=== PATIENT | male | born 1940 | race African-American/Black ===

== ENCOUNTER 2017-11-15 20:09 | Inpatient (IN) | payer MEDICARE ==
[~2017-11-15] VITALS: Ht 160 cm; Wt 63.0 kg
[2017-11-15 21:25] LABS: BASOPHILS % 0.1 % (0.0-2.0); EOSINOPHILS % 0.1 % (0.0-5.0); HEMATOCRIT. 43.3 % (42.0-52.0); HEMOGLOBIN. 15.1 g/dL (14.0-18.0); LYMPHOCYTES % 7.6 % (20.0-50.0); MEAN CORPUSCULAR HEMOGLOBIN 32.2 pg (28.0-32.0); MEAN CORPUSCULAR VOLUME 92.4 fL (80.0-94.0); MEAN PLATELET VOLUME 8.2 fl (7.4-10.4); MONOCYTES % 7.1 % (2.0-8.0); NEUTROPHILS % 85.1 % (40.0-76.0); PLATELET 179 x1000/uL (130-400); RED BLOOD CELL COUNT 4.68 mill/uL (4.7-6.1)
[2017-11-15 21:29] LABS: PROTHROMBIN TIME 10.3 sec (9.1-11.1)
[2017-11-15 21:30] LABS: CHLORIDE 104 mEq/L (98-107)
[2017-11-15 21:38] LABS: CLARITY URINE CLEAR (CLEAR); COLOR URINE YELLOW (YELLOW); KETONES URINE NEGATIVE (NEGATIVE); LEUKOCYTE ESTERASE URINE NEGATIVE (NEGATIVE); NITRITE URINE NEGATIVE (NEGATIVE); OCCULT BLOOD URINE NEGATIVE (NEGATIVE); PROTEIN URINE TRACE (NEGATIVE); SPECIFIC GRAVITY URINE 1.017 (1.005-1.030); UROBILINOGEN URINE 0.2 E.U./dL (0.2-1.0)
[2017-11-15] MEDS ORDERED: PIPERACILLIN/TAZ 3.375G PREMIX 50 ML IV ONE (22:00)
[2017-11-15] MEDS ORDERED: SODIUM CHLORIDE 0.9% 1000ML BAG (SEPSIS BOLUS) IV ONE (22:00)
[2017-11-15] MEDS ORDERED: VANCOMYCIN 1 G PREMIX 200 ML IV ONE (22:00)
[2017-11-16 08:00] VITALS: BP 172/73
[2017-11-16 09:52] VITALS: BP 172/73
[2017-11-16] MEDS ORDERED: NA PHOS,M-B/NA PHOS,DI-BA ENEMA 118ML PR PRN (11:15)
[2017-11-16] MEDS ORDERED: DEXTROSE 50% WATER 50ML SYRINGE IV PRN (11:15)
[2017-11-16] MEDS ORDERED: ACETAMINOPHEN 650MG SUPP PR PRN (11:15)
[2017-11-16] MEDS ORDERED: MAGNESIUM/ALUMINUM HYDROXIDE/SIMETHICONE 30ML UDC PO PRN (11:15)
[2017-11-16] MEDS ORDERED: HYDRALAZINE 20MG/ML VIAL IV PRN (11:15)
[2017-11-16] MEDS ORDERED: ACETAMINOPHEN 325MG TABLET PO PRN (11:15)
[2017-11-16] MEDS ORDERED: DEXT 5%/0.9% NACL 1,000 ML IV SCH (11:15)
[2017-11-16] MEDS ORDERED: IPRATROPIUM/ALBUTEROL 0.5-3(2.5)MG/3ML NEB INH PRN (11:15)
[2017-11-16] MEDS ORDERED: ONDANSETRON HCL 4MG/2ML INJ IV PRN (11:15)
[2017-11-16] MEDS ORDERED: DIPHENHYDRAMINE 50MG/ML VIAL IV PRN (11:15)
[2017-11-16] MEDS ORDERED: HYDRALAZINE 10 MG in SODIUM CHLORIDE 0.9% 49.5 ML IV PRN (11:30)
[2017-11-16 12:00] VITALS: BP 158/78
[2017-11-16] MEDS ORDERED: ENOXAPARIN 40MG/0.4ML SYR SUBCUT SCH (12:00)
[2017-11-16] MEDS: BLOOD SUGAR DIAGNOSTIC STRIP TEST SCH ×3 (12:25→20:02)
[2017-11-16 12:58] LABS: *AMPHETAMINES SCREEN URINE NEGATIVE (NEGATIVE); *BARBITURATES SCREEN URINE NEGATIVE (NEGATIVE); *BENZODIAZEPINES SCREEN URINE NEGATIVE (NEGATIVE); *COCAINE SCREEN URINE NEGATIVE (NEGATIVE)
[2017-11-16 12:59] LABS: CANNABINOID URINE SCREEN NEGATIVE (NEGATIVE); METHADONE URINE SCREEN NEGATIVE (NEGATIVE); OPIATES URINE SCREEN NEGATIVE (NEGATIVE); PHENCYCLIDINE URINE SCREEN NEGATIVE (NEGATIVE)
[2017-11-16 16:00] VITALS: BP 155/86
[2017-11-16 16:25] LABS: HEMATOCRIT 40.7 % (42.0-52.0); MEAN CORPUSCULAR VOLUME 92.7 fL (80.0-94.0); PLATELET 175 x1000/uL (130-400); RED BLOOD CELL COUNT 4.39 mill/uL (4.7-6.1); RED CELL DISTRIBUTION WIDTH 13.4 % (11.6-14.6)
[2017-11-16 16:43] LABS: CHLORIDE 105 mEq/L (98-107)
[2017-11-16 16:51] LABS: AMMONIA 34 uMol/L (<32)
[2017-11-16 16:53] LABS: CREATINE KINASE 138 IU/L (39-308)
[2017-11-16 17:17] LABS: VITAMIN B12 SERUM 493 pg/mL (211-911)
[2017-11-16 19:44] VITALS: BP 165/93
[2017-11-16 19:45] VITALS: BP 165/93
[2017-11-16] MEDS ORDERED: CLONIDINE 0.1MG TABLET PO SCH (20:00)
== END 2017-11-16 20:30 | disposition home or self-care (01) | DRG 637 ==
LOC: ER 20:09 → 6WST 22:22 → EDBEDREQ 22:26 → EDBEDREQSVC 22:26 → ENRESERV 11-16 07:46
PROVIDERS: ADMIT Internal Medicine; ATTEND Internal Medicine
DX: E11.649 Type 2 diabetes mellitus with hypoglycemia without coma (principal); G93.41 Metabolic encephalopathy; I10 Essential (primary) hypertension
CPT/HCPCS: 36415; 70450; 71045; 80048; 80053; 80305; 81003; 82140; 82550; 82553; 82607; 82962; 83036; 83605; 84145; 84484; 85025; 85027; 85610; 87040; 87086; 93005; 93306; 93970; 96365; 96375; 99285; J0360; J1650; J2543; J3370; J7030; J7042

== ENCOUNTER 2018-03-01 13:25 | Emergency (ER) | payer MEDICARE ==
[~2018-03-01] VITALS: Ht 182.9 cm; Wt 85.0 kg
[2018-03-01 15:04] LABS: CHLORIDE 107 mEq/L (98-107)
[2018-03-01 15:05] LABS: BASOPHILS % 0.2 % (0.0-2.0); HEMATOCRIT. 44.4 % (42.0-52.0); HEMOGLOBIN. 15.2 g/dL (14.0-18.0); MEAN CORPUSCULAR VOLUME 93.1 fL (80.0-94.0); MEAN PLATELET VOLUME 7.9 fl (7.4-10.4); NEUTROPHILS % 79.8 % (40.0-76.0); PLATELET 214 x1000/uL (130-400); RED BLOOD CELL COUNT 4.77 mill/uL (4.7-6.1); RED CELL DISTRIBUTION WIDTH 14.3 % (11.6-14.6)
[2018-03-01 21:13] VITALS: BP 162/72
== END 2018-03-01 21:14 | disposition home or self-care (01) ==
LOC: ER 13:47
DX: E11.649 Type 2 diabetes mellitus with hypoglycemia without coma (principal); T38.3X5A Adverse effect of insulin and oral hypoglycemic [antidiabetic] drugs, initial encounter; Z79.4 Long term (current) use of insulin; Y92.89 Other specified places as the place of occurrence of the external cause; R03.0 Elevated blood-pressure reading, without diagnosis of hypertension
CPT/HCPCS: 36415; 71045; 82962; 83880; 84484; 93005; 99284